=== PATIENT | female | born 1975 | race Caucasian/White ===

== ENCOUNTER → 2017-01-30 | Outpatient (CLI) | payer OTHER | LOC: M WUC 08:33 | PROVIDERS: ATTEND Family Medicine | DX: Z13.1 Encounter for screening for diabetes mellitus (principal); Z13.220 Encounter for screening for lipoid disorders ==

== ENCOUNTER → 2018-02-24 | Outpatient (REF) | payer OTHER ==
[2018-02-24 17:49] LABS: BASO % 0.6 % (0.0-1.0); EOS # 0.1 10^3/uL (0.0-0.50); EOS % 1.2 % (0.0-3.0); HEMATOCRIT 39.6 % (36.0-47.0); HEMOGLOBIN 12.9 g/dl (12.0-15.5); IMMATURE GRANULOCYTE % 0.3 % (0-3.0); LYMPH # 1.2 10^3/uL (1.5-4.5); LYMPH % 17.5 % (24.0-44.0); MEAN CORPUSCULAR HEMOGLOBIN 29.5 pg (27.0-33.0); MEAN CORPUSCULAR HGB CONC 32.6 g/dl (32.0-36.5); MEAN CORPUSCULAR VOLUME 90.4 fl (80.0-96.0); MONO # 0.5 10^3/uL (0.0-0.8); MONO % 7.5 % (0.0-5.0); NEUTROPHILS # 4.9 10^3/uL (1.8-7.7); NEUTROPHILS % 72.9 % (36.0-66.0); PLATELET COUNT, AUTOMATED 112 10^3/uL (150-450); RED BLOOD COUNT 4.38 10^6/uL (4.00-5.40); RED CELL DISTRIBUTION WIDTH 12.6 % (11.5-14.5); WHITE BLOOD COUNT 6.7 10^3/uL (4.0-10.0)
[2018-02-24 17:59] LABS: THYROID STIMULATING HORMONE 0.711 uIU/ML (0.358-3.740)
[2018-02-24 19:33] LABS: ERYTHROCYTE SEDIMENTATION RATE 3 mm/hr (0-20)
== END ==
LOC: M SFHCLERA 14:07
DX: R68.89 Other general symptoms and signs (principal)

== ENCOUNTER → 2018-03-01 | Outpatient (CLI) | payer OTHER ==
[2018-03-01 20:03] LABS: SLIDE REVIEW Report; SOURCE PERIPHERAL SMEAR
[2018-03-04 00:07] LABS: ANA (HEP2) Negative (.); RNP ANTIBODY < 0.2 AI (0.0-0.9); SMITHS ANTIBODY < 0.2 AI (0.0-0.9)
== END ==
LOC: M WUC 18:26
DX: I73.00 Raynaud's syndrome without gangrene (principal); D69.6 Thrombocytopenia, unspecified

== ENCOUNTER → 2018-04-11 | Outpatient (REF) | payer OTHER ==
[2018-04-19 14:13] LABS: HPV LOW VOL RFLX Negative (Negative)
== END ==
LOC: M SFHCLERA 16:02
DX: Z01.419 Encounter for gynecological examination (general) (routine) without abnormal findings (principal)

== ENCOUNTER → 2019-09-25 | Outpatient (CLI) | payer OTHER ==
[2019-09-25 11:46] LABS: BASO % 0.5 % (0.0-1.0); EOS # 0.1 10^3/uL (0.0-0.5); EOS % 1.1 % (0.0-3.0); HEMATOCRIT 43.2 % (36.0-47.0); LYMPH # 1.3 10^3/uL (1.5-5.0); LYMPH % 23.3 % (24.0-44.0); MEAN CORPUSCULAR HEMOGLOBIN 29.5 pg (27.0-33.0); MEAN CORPUSCULAR HGB CONC 32.4 g/dl (32.0-36.5); MEAN CORPUSCULAR VOLUME 91.1 fl (80.0-96.0); MONO # 0.4 10^3/uL (0.0-0.8); NEUTROPHILS # 3.9 10^3/uL (1.5-8.5); NEUTROPHILS % 67.7 % (36.0-66.0); PLATELET COUNT, AUTOMATED 133 10^3/uL (150-450); RED BLOOD COUNT 4.74 10^6/uL (4.00-5.40); WHITE BLOOD COUNT 5.7 10^3/uL (4.0-10.0)
[2019-09-25 12:09] LABS: CHOLESTEROL RISK RATIO 2.431 (<5); THYROID STIMULATING HORMONE 1.24 uIU/ML (0.358-3.740)
== END ==
LOC: M WUC 10:21
PROVIDERS: ATTEND Family Medicine
DX: Z00.00 Encounter for general adult medical examination without abnormal findings (principal)

== ENCOUNTER → 2019-10-26 | Outpatient (CLI) | payer BC, OTHER ==
[~2019-10-26] MED LIST: FLORCAP10 PO
[2019-10-26 09:44] LABS: BASO % 0.7 % (0.0-1.0); EOS # 0.1 10^3/uL (0.0-0.5); HEMATOCRIT 43.9 % (36.0-47.0); HEMOGLOBIN 14.2 g/dl (12.0-15.5); LYMPH # 1.3 10^3/uL (1.5-5.0); LYMPH % 33.4 % (24.0-44.0); MEAN CORPUSCULAR HEMOGLOBIN 29.4 pg (27.0-33.0); MEAN CORPUSCULAR HGB CONC 32.3 g/dl (32.0-36.5); MEAN CORPUSCULAR VOLUME 90.9 fl (80.0-96.0); MONO # 0.3 10^3/uL (0.0-0.8); MONO % 6.2 % (0.0-5.0); NEUTROPHILS # 2.3 10^3/uL (1.5-8.5); NEUTROPHILS % 57.5 % (36.0-66.0); PLATELET COUNT, AUTOMATED 119 10^3/uL (150-450); RED BLOOD COUNT 4.83 10^6/uL (4.00-5.40)
[2019-10-26 10:24] LABS: ALBUMIN 3.9 GM/DL (3.2-5.2); ALT/SGPT 20 U/L (12-78); BILIRUBIN,TOTAL 0.7 MG/DL (0.2-1.0); BLOOD UREA NITROGEN 15 MG/DL (7-18); CALCIUM LEVEL 8.4 MG/DL (8.5-10.1); CARBON DIOXIDE LEVEL 31 MEQ/L (21-32); CHLORIDE LEVEL 107 MEQ/L (98-107); CREATININE FOR GFR 0.86 MG/DL (0.55-1.30); GLOMERULAR FILTRATION RATE > 60.0 (>58); GLUCOSE, FASTING 85 MG/DL (70-100); LDH LACTATE DEHYDROGENASE 135 U/L (84-246); SODIUM LEVEL 141 MEQ/L (136-145)
[2019-10-26 11:25] LABS: VITAMIN B12 LEVEL 512 PG/ML
[2019-10-31 06:08] LABS: COPPER PLASMA 91 ug/dL (72-166); HAPTOGLOBIN 87 mg/dL (42-296)
== END ==
LOC: M WUC 08:20
PROVIDERS: ATTEND Internal Medicine Medical Oncology
DX: D69.6 Thrombocytopenia, unspecified (principal)

== ENCOUNTER → 2019-11-20 | Outpatient (CLI) | payer OTHER ==
[2019-11-20 13:31] LABS: BASO % 0.5 % (0.0-1.0); EOS # 0.1 10^3/uL (0.0-0.5); EOS % 1.6 % (0.0-3.0); HEMATOCRIT 41.8 % (36.0-47.0); HEMOGLOBIN 13.4 g/dl (12.0-15.5); LYMPH # 1.5 10^3/uL (1.5-5.0); LYMPH % 26.9 % (24.0-44.0); MEAN CORPUSCULAR HEMOGLOBIN 29.5 pg (27.0-33.0); MEAN CORPUSCULAR HGB CONC 32.1 g/dl (32.0-36.5); MEAN CORPUSCULAR VOLUME 92.1 fl (80.0-96.0); MONO # 0.5 10^3/uL (0.0-0.8); MONO % 8.7 % (0.0-5.0); NEUTROPHILS # 3.4 10^3/uL (1.5-8.5); NEUTROPHILS % 62.1 % (36.0-66.0); RED BLOOD COUNT 4.54 10^6/uL (4.00-5.40); WHITE BLOOD COUNT 5.5 10^3/uL (4.0-10.0)
[2019-11-20 13:54] LABS: PLATELET COUNT, AUTOMATED 123 10^3/uL (150-450)
[2019-11-20 13:55] LABS: ERYTHROCYTE SEDIMENTATION RATE 3 mm/hr (0-20)
[2019-11-20 13:56] LABS: INR 1.17; PROTHROMBIN TIME 14.6 SECONDS (11.8-14.0)
[2019-11-20 13:57] LABS: PARTIAL THROMBOPLASTIN TIME 32.7 SECONDS (25.0-38.4)
[2019-11-20 14:54] LABS: ALBUMIN 3.7 GM/DL (3.2-5.2); ALT/SGPT 21 U/L (12-78); BILIRUBIN,TOTAL 0.5 MG/DL (0.2-1.0); BLOOD UREA NITROGEN 16 MG/DL (7-18); CALCIUM LEVEL 8.6 MG/DL (8.5-10.1); CARBON DIOXIDE LEVEL 26 MEQ/L (21-32); CHLORIDE LEVEL 109 MEQ/L (98-107); CREATININE FOR GFR 0.82 MG/DL (0.55-1.30); FERRITIN 24 NG/ML (8-252); GLOMERULAR FILTRATION RATE > 60.0 (>58); GLUCOSE, FASTING 79 MG/DL (70-100); IRON (FE) 58 UG/DL (50-170); PERCENT SATURATION 19.2 % (13.2-45.0); POTASSIUM SERUM 4.2 MEQ/L (3.5-5.1); RHEUMATOID FACTOR QUANT < 10.0 IU/ML (<15.0); SODIUM LEVEL 140 MEQ/L (136-145); TOTAL IRON BINDING CAPACITY 302 UG/DL (250-450)
[2019-11-21 15:16] LABS: COLD AGGLUTININS NEGATIVE (NEGATIVE)
[2019-11-22 17:07] LABS: ANCA-ATYPICAL <1:20 titer (Neg:<1:20); ANTI SCLERODERMA ANTIBODIES <0.2 AI (0.0-0.9); ANTINUCLEAR ANTIBODIES DIRECT Negative (Negative); CYTOPLASMIC NEUTROP AB ANCA-C <1:20 titer (Neg:<1:20); PERINUCLEAR AB ANCA-P <1:20 titer (Neg:<1:20)
[2019-11-28 12:16] LABS: HLA CLASS 1 ANTIBODY Positive (Negative); IIb/IIIa ANTIBODY Negative (Negative); Ia/IIa ANTIBODY Negative (Negative); Ib/IX ANTIBODY Negative (Negative)
== END ==
LOC: M PLALAB 11:05
PROVIDERS: ATTEND Internal Medicine Hematology & Oncology
DX: D69.6 Thrombocytopenia, unspecified (principal)

== ENCOUNTER → 2020-06-04 | Outpatient (CLI) | payer OTHER ==
[2020-06-04 18:16] LABS: BASO % 0.5 % (0.0-1.0); EOS # 0.1 10^3/uL (0.0-0.5); EOS % 1.3 % (0.0-3.0); HEMATOCRIT 38.3 % (36.0-47.0); HEMOGLOBIN 12.3 g/dl (12.0-15.5); LYMPH # 1.2 10^3/uL (1.5-5.0); LYMPH % 21.1 % (24.0-44.0); MEAN CORPUSCULAR HEMOGLOBIN 29.4 pg (27.0-33.0); MEAN CORPUSCULAR HGB CONC 32.1 g/dl (32.0-36.5); MEAN CORPUSCULAR VOLUME 91.6 fl (80.0-96.0); MONO # 0.4 10^3/uL (0.0-0.8); NEUTROPHILS # 3.9 10^3/uL (1.5-8.5); NEUTROPHILS % 69.9 % (36.0-66.0); PLATELET COUNT, AUTOMATED 133 10^3/uL (150-450); RED BLOOD COUNT 4.18 10^6/uL (4.00-5.40); WHITE BLOOD COUNT 5.6 10^3/uL (4.0-10.0)
[2020-06-04 18:17] LABS: INR 1.14; PROTHROMBIN TIME 14.9 SECONDS (12.5-14.3)
== END ==
LOC: M PLALAB 14:33
PROVIDERS: ATTEND Internal Medicine Hematology & Oncology
DX: D69.6 Thrombocytopenia, unspecified (principal)

== ENCOUNTER → 2020-10-25 | Outpatient (CLI) | payer OTHER ==
[~2020-10-25] MED LIST changes: +FERR240T PO
[2020-10-25 09:54] LABS: BASO % 0.8 % (0.0-1.0); EOS # 0.1 10^3/uL (0.0-0.5); EOS % 1.8 % (0.0-3.0); HEMATOCRIT 45.2 % (36.0-47.0); HEMOGLOBIN 14.6 g/dl (12.0-15.5); LYMPH # 1.3 10^3/uL (1.5-5.0); MEAN CORPUSCULAR HEMOGLOBIN 29.6 pg (27.0-33.0); MEAN CORPUSCULAR HGB CONC 32.3 g/dl (32.0-36.5); MEAN CORPUSCULAR VOLUME 91.7 fl (80.0-96.0); MONO # 0.4 10^3/uL (0.0-0.8); MONO % 7.2 % (2.0-8.0); NEUTROPHILS # 3.2 10^3/uL (1.5-8.5); PLATELET COUNT, AUTOMATED 122 10^3/uL (150-450); RED BLOOD COUNT 4.93 10^6/uL (4.00-5.40)
[2020-10-25 10:20] LABS: FERRITIN 47 NG/ML (8-252); IRON (FE) 63 UG/DL (50-170); PERCENT SATURATION 20.9 % (13.2-45.0); TOTAL IRON BINDING CAPACITY 302 UG/DL (250-450)
[2020-10-25 10:25] LABS: TOTAL 25(OH) VITAMIN D 38.5 NG/ML (30.0-100.0); VITAMIN B12 LEVEL > 2000 PG/ML (247-911)
== END ==
LOC: M WUC 08:19
PROVIDERS: ATTEND Internal Medicine Hematology & Oncology
DX: D69.6 Thrombocytopenia, unspecified (principal)

== ENCOUNTER → 2021-11-19 | Outpatient (CLI) | payer OTHER ==
[~2021-11-19] MED LIST changes: +PRESCAP4 PO; +VITMTA PO
[2021-11-19 10:25] LABS: CHOLESTEROL RISK RATIO 2.29 (<5); THYROID STIMULATING HORMONE 1.57 uIU/ML (0.358-3.740)
== END ==
LOC: M WUC 08:17
PROVIDERS: ATTEND Student in an Organized Health Care Education/Training Program
DX: Z00.00 Encounter for general adult medical examination without abnormal findings (principal); N92.6 Irregular menstruation, unspecified

== ENCOUNTER → 2022-09-04 | Outpatient (REF) | payer OTHER | LOC: M SFHCLERA 12:38 | PROVIDERS: ATTEND Student in an Organized Health Care Education/Training Program | DX: Z12.4 Encounter for screening for malignant neoplasm of cervix (principal) ==

== ENCOUNTER → 2024-12-07 | Outpatient (REF) | payer OTHER ==
[~2024-12-07] MED LIST changes: +D200CAP3 PO; +VITA-148 PO; +VITA500C24 PO; +ZINC50CA4 PO
[2024-12-07 17:49] LABS: ALT/SGPT 22.0 U/L (7.0-40); AST/SGOT 22.0 U/L (<34); CALCIUM LEVEL 8.7 MG/DL (8.5-10.1); CARBON DIOXIDE LEVEL 27.0 MMOL/L (20-31); CHLORIDE LEVEL 104.0 MMOL/L (98-107); CHOLESTEROL LEVEL 142.0 MG/DL (<200); CHOLESTEROL RISK RATIO 2.48 (<5); CREATININE FOR GFR 0.9 MG/DL (0.55-1.30); GLOMERULAR FILTRATION RATE 77.9 (>51); LDL CHOLESTEROL 73.1 MG/DL (<100); NON-HDL-C 84.9 MG/DL; POTASSIUM SERUM 4.4 MMOL/L (3.5-5.1); SODIUM LEVEL 141.0 MMOL/L (136-145); TRIGLYCERIDES LEVEL 59.0 MG/DL (<150)
== END ==
LOC: M SFHCLERA 07:58
PROVIDERS: ATTEND Family Medicine
DX: Z00.00 Encounter for general adult medical examination without abnormal findings (principal)

== ENCOUNTER 2025-04-18 06:55 | Day surgery (SDC) | payer OTHER ==
[~2025-04-18] VITALS: Ht 167.6 cm; Wt 58.1 kg
[~2025-04-18 06:55] MED LIST changes: +THERTAB52 PO; +VITA100093 PO
[2025-04-18] MEDS ORDERED: LIDOCAINE 2% 100 MG/5 ML SDV (FOR ANES.) As Ordered ONE (07:40)
[2025-04-18] MEDS ORDERED: GLYCOPYRROLATE INJ 0.2 MG/ML 2 ML VIAL As Ordered ONE (07:54)
[2025-04-18 08:03] VITALS: TEMP 97.9
[2025-04-18 08:12] VITALS: BP 107/71; O2SAT 100
== END 2025-04-18 08:20 | disposition home or self-care (01) ==
LOC: M OPP 06:55
PROVIDERS: ATTEND Surgery
DX: Z12.11 Encounter for screening for malignant neoplasm of colon (principal); Z88.0 Allergy status to penicillin; Z79.899 Other long term (current) drug therapy
CPT/HCPCS: 45378; J1596